=== PATIENT | male | born 2000 | race Caucasian/White ===

== ENCOUNTER 2022-05-14 08:10 | Emergency (ER) | payer OTHER ==
[2022-05-14] MEDS ORDERED: Acetaminophen 325 MG Tab PO ONE (08:39)
[2022-05-14] MEDS ORDERED: Ibuprofen 400 MG Tab PO ONE (08:39)
[2022-05-14] MEDS ORDERED: Lidocaine 1% 5 ML VIAL INJECT ONE (10:23)
[2022-05-14] MEDS ORDERED: Cephalexin 500 MG Cap PO ONE (10:24)
[2022-05-14] MEDS ORDERED: Diphtheria,Pertussis(Acell),Tetanus Vaccine 0.5 ML Syringe IM ONE (10:24)
[2022-05-14] MEDS ORDERED: Bacitracin Oint 28.35 GM Tube TOP STA (11:08)
== END 2022-05-14 11:20 | disposition home or self-care (01) ==
LOC: MW.ED 08:10
DX: S62.637A Displaced fracture of distal phalanx of left little finger, initial encounter for closed fracture (principal); Z79.899 Other long term (current) drug therapy; Z23 Encounter for immunization; W22.8XXA Striking against or struck by other objects, initial encounter
CPT/HCPCS: 73140; 90471; 90715; 99283; A9270; J3490